=== PATIENT | male | born 1970 | race Caucasian/White ===

== ENCOUNTER → 2016-08-29 | Outpatient (CLI) | payer OTHER ==
[~2016-08-29] MED LIST: AMITRIPTYLINE H50 MG PO; BRILINTA90 MG PO; FLEXERIL10 MG PO; GABAPENTIN600 MG PO; HYDROCODON-ACE1 EAC7 PO; IBUPROFEN800 MG PO; LIPITOR PO; LISINOPRIL20 MG PO; LOPRESSOR PO; NORCO 10-325 TA1 TAB PO; NORVASC10 MG PO; PREDNISONE PO; PROTONIX PO
--- NOTE | ~2016-08-29 | CR210 ---
[facility] A Service of [facility] & [facility] RADIOLOGY TEXT RESULTS PATIENT: MARIA ALEJANDRA VIZCARRA LOCATION: [facility] : 72 UNIT #: [id number] AGE: [address]: Alena Teran MD SEX: M ORDER DR: [id number] [facility] [address] [place], [place] [address] [id number] O MR#: [id number] #: [id number] NAME: MARIA ALEJANDRA VIZCARRA. : 1970 SEX: M STUDY DATE/TIME: 08/29/2016 12:14 UNIT: [facility] ROOM: STUDY DESCRIPTION: CR Ribs Uni 2 View W PA Ch Lt Attending Physician: Alena Teran M.D. Referring Physician: Alena Teran M.D. Ordering Physician: Alena Teran M.D. Primary Care Physician: Alena Teran M.D. MEDICAL IMAGING REPORT This report is preliminary unless electronic signature is present EXAM Left rib series with PA chest, 08/29/2016, [facility]. HISTORY 46-year-old male patient pain left anterior lower ribs. Patient struck left side ribs against car door 5 days ago. FINDINGS Left rib series demonstrates intact rib cortex with no visualized fracture. Mineralization is preserved. Bilateral lungs are expanded and clear. Cardiovascular presentation is normal. IMPRESSION Negative left rib series. No acute chest finding. Dictated by... Vamshi Pal M.D. THIS IS AN ELECTRONICALLY VERIFIED REPORT Vamshi Pal M.D. at 08/29/2016 2:38 PM GILLES/luz maria TD: 08/29/2016 14:24 JOB #: [id number] MEDICAL IMAGING REPORT Page 1 of 1 COPY
== END | disposition home or self-care (01) ==
LOC: CRAD 11:26
DX: R07.81 Pleurodynia (principal)
CPT/HCPCS: 71101